=== PATIENT | male | born 1985 | race Caucasian/White ===

== ENCOUNTER 2016-10-23 17:35 | Emergency (ER) | payer OTHER ==
[~2016-10-23 17:35] MED LIST: Albuterol Sulfate 2.5 mg/0.5 ml Neb ONE
[2016-10-23] MEDS ORDERED: EPINEPHrine 1 MG/ML AMP ONE (17:51)
[2016-10-23] MEDS ORDERED: Ipratropium Bromide 2.5 ml Neb ONE (18:10)
[2016-10-23] MEDS ORDERED: methylPREDNISolone Sod Succ/PF 125 MG/2 ML VIAL ONE (18:10)
[2016-10-23] MEDS ORDERED: diphenhydrAMINE HCl 50 MG/ML 1 ML VIAL ONE (18:10)
[2016-10-23 18:11] LABS: #Basophils 0.1 thou/uL (0.0-0.2); #Eosinphils 0.2 thou/uL (0.0-0.7); #Neutrophils 6.2 thou/uL (1.40-6.50); %Basophils 1.2 % (0.0-1.0); %Eosinophils 1.7 % (0.0-10.0); %Lymphocytes 28.8 % (21.0-51.0); %Monocytes 9.5 % (0.0-10.0); %Neutrophils 58.8 % (42.0-75.0); Hemoglobin 17.4 g/dL (14.0-18.0); Mean Corpuscular HGB CONC 33.7 g/dL (32.0-36.0); Mean Corpuscular Hemoglobin 29.2 pg (27.0-31.0); Mean Corpuscular Volume 86.9 fl (80.0-94.0); Mean Platelet Volume 7.1 fL (7.4-10.4); Platelet Count 246 thou/uL (130-400); RBC Distribution Width 11.5 % (11.5-14.5); Red Blood Cell (RBC) Count 5.95 mill/uL (4.70-6.10); White Blood Cell (WBC) Count 10.5 thou/uL (4.8-10.8)
[2016-10-23] MEDS ORDERED: Sterile Water 10 ML ONE (18:21)
[2016-10-23 18:33] LABS: CKMB 4.6 ng/mL (0-6.6); Troponin I Less than 0.010 ng/mL (< 0.028)
[2016-10-23 18:34] LABS: ALT (SGPT) 57 U/L (0-55); AST (SGOT) 31 U/L (5-34); Albumin 4.1 g/dL (3.5-5.0); Alkaline Phosphatase 71 U/L (40-150); Anion Gap 18 mmol/L (10-20); BUN (Urea Nitrogen) 25 mg/dL (8.9-20.6); Bilirubin, Total 0.3 mg/dL (0.2-1.2); Calc. Creatinine Clearance 0 mL/min (70-130); Calcium 9.4 mg/dL (7.8-10.44); Carbon Dioxide 21 mmol/L (22-29); Chloride 107 mmol/L (98-107); Estimated GFR-MDRD 64; Globulin 2.6 g/dL (2.4-3.5); Glucose 128 mg/dL (70-105); Potassium 3.8 mmol/L (3.5-5.1); Protein, Total 6.7 g/dL (6.0-8.3); Sodium 142 mmol/L (136-145)
--- NOTE | 2016-10-23 19:37 | RAD ---
SINGLE VIEW OF THE CHEST 10/23/16 INDICATION: Dyspnea. IMPRESSION: There is added air space opacity within the left lower lobe which may reflect pneumonia. Recommend d edicated lateral projection for additional characterization. COMMENTS: There is suspected eventration of the right hemidiaphragm. Heart and pulmonary vasculatur e is within normal limits. No acute osseous abnormality is evident. POS: [facility]
--- NOTE | 2016-10-23 21:23 | PICIS ---
[facility] EMERGENCY RECORD TRIAGE (WedOct 23, 2016 17:49 SCHI) PATIENT: NAME: Kody Davis Jr, AGE: 30, GENDER: male, : Rekha 1985, TIME OF GREET: WedOct 23, 2016 17:35, PREFERRED LANGUAGE: Malay, ETHNICITY: Not or , ECODE BILLING MAP: [facility] ER, SSN: [id number], KG WEIGHT: 142.88, PHONE: , , , PERSON ID: [id number]. (WedOct 23, 2016 17:49 SCHI) Zip Code: [facility] [place]. (18:03) COMPLAINT: ALLERGIC REACTION. (WedOct 23, 2016 17:49 SCHI) ADMISSION: URGENCY: 3 Urgent, ADMISSION SOURCE: Home, TRANSPORT: Walk-in, BED: TRIAGE. (WedOct 23, 2016 17:49 SCHI) ASSESSMENT: Assessment: ALERT AND ORIENTED X 4, SKIN WARM AND DRY RESP EVEN AND UNLABORED,, Symptoms began 3PM. (18:03 SCHI) TRIAGE SCREENING: Patient denies suicidal ideation, Patient denies presence of domestic violence. (18:03 SCHI) PROVIDERS: TRIAGE NURSE: John Hendrickson RN. (WedOct 23, 2016 17:49 SCHI) VITAL SIGNS: Pulse 122, Resp 20, O2 Sat 94, on Room Air, Time 10/23/2016 17:49. (17:49 SCHI) BP 135/75, Pulse 113, Time 10/23/2016 17:55. (17:55 SCHI) KNOWN ALLERGIES nkda CURRENT MEDICATIONS (21:07 JDEA) None VITAL SIGNS VITAL SIGNS: Pulse: 122, Resp: 20, O2 sat: 94 on Room Air, Time: 10/23/2016 17:49. (17:49 SCHI) BP: 135/75, Pulse: 113, Time: 10/23/2016 17:55. (17:55 SCHI) BP: 135/75, Pulse: 108, Resp: 20, Temp: 99.1 (Tympanic), Pain: 0, O2 sat: 96 on Room Air, Time: 10/23/2016 18:20. (18:20 SCHI) BP: 126/78, Pulse: 108, O2 sat: 95 on Room Air, Time: 10/23/2016 18:41. (18:41 SCHI) NURSING ASSESSMENT: ALLERGIC REACTION CONSTITUTIONAL: Patient arrives ambulatory, Gait steady, History obtained from patient, Patient appears comfortable, Patient cooperative, Patient alert, Oriented to person, place and time, Skin warm, Skin dry, Skin normal in color, Mucous membranes pink, Mucous membranes moist, Patient is well-groomed. (18:39 SCHI) ALLERGIC REACTION: Allergic reaction to known allergen, insect bite, ant, Date and time of exposure: 1500 today, Allergic reaction symptoms include difficulty breathing, Allergic reaction symptoms include hives, Allergic reaction symptoms include rash, Allergic reaction symptoms include wheezing, Notes: took a Benadryl 1730. (18:39 SCHI) &a-1R&a+25V*p+0X*b4498R*c202B*c15G*c2P*p-0X&a-25V&a+1R Name: Kody Davis Jr : 1985 M30 MedRec: [id number] AcctNum: [id number] Prepared: Sat Oct 24, 2016 03:10 by Interface Page 1 of 10 pMD [facility] EMERGENCY RECORD RESPIRATORY: Lungs auscultated, Breath sounds with wheezing, Respiratory assessment findings include respiratory effort easy, Respirations regular, Conversing normally, Neck and chest exam findings include trachea midline, Chest expansion equal, Chest movement symmetrical. (18:39 SCHI) SKIN: Inspection findings include rash, red, hives, itchy, without drainage, to arms, chest,, flushed face and neck. (18:57 SCHI) NURSING PROCEDURE: COMPOSITE TECHNICIAN (18:00 SCHI) COMPOSITE TECHNICIAN: Patient placed on ekg monitor tech, Patient placed on non-invasive blood pressure monitor, Patient placed on continuous pulse oximetry, Adult/pediatric oxisensor applied. NURSING PROCEDURE: DISCHARGE NOTE (21:06 JDEA) DISCHARGE: Patient discharged to home, ambulating without assistance, family driving, accompanied by other family member, Summary of Care printed/ provided, Patient requested and was provided an electronic copy of Discharge Instructions, Transition record given to patient, Discharge instructions given to patient, Simple or moderate discharge teaching performed, Prescriptions given and instructions on side effects given, Above person(s) verbalized understanding of discharge instructions and follow-up care, Patient treated and evaluated by physician, Notes: pt states symptoms have much improved since initial arrival to the ED, states that he feels much better. BELONGINGS: Belongings and valuables with patient at time of discharge include:, Belongings remain with patient. NOTES: Patient tolerated procedure well. SAFETY: Family at bedside, Call light within reach, Hospital ID band on. NURSING PROCEDURE: IV (18:04 SCHI) PATIENT IDENITIFIER: Patient actively involved in identification process, Patient's identity verified by patient stating name, Patient's identity verified by patient stating date, Patient's identity verified by hospital ID bracelet. IV SITE 1: IV therapy indicated for hydration, IV therapy indicated for medication administration, IV established, to the left forearm, using a 20 gauge catheter, in one attempt, IV site prepped with chloraprep, Saline lock established, Flushed with normal saline (mls): 10, Labs drawn at time of placement, labeled in the presence of the patient and sent to lab. NURSING PROCEDURE: NURSE NOTES NURSES NOTES: Notes: all times are approximate due to care being provided, then documented. (18:00 SCHI) Patient is improving, Notes: no sob, most whelps are gone. (18:54 SCHI) &a-1R&a+25V*p+0X*n3613G*c202B*c15G*c2P*p-0X&a-25V&a+1R Name: Kody Davis Jr : 1985 M30 MedRec: [id number] AcctNum: [id number] Prepared: Fabrice Oct 24, 2016 03:10 by Interface Page 2 of 10 pMD [facility] EMERGENCY RECORD ORDER DETAILS Order Name: COMPOSITE TECHNICIAN ED, Status: Done, Time: 18:29 10/23/2016, User: ELLA, - Ordered for: MD Pina Darren, - Entered by: MD Pina Darren - Brian Oct 23, 2016 17:59, - Quantity: 1, Order Name: Cardiac Profile w/CKMB & Troponin - I, Status: Active, Time: 17:59 10/23/2016, User: GRUPO, - Ordered for: MD Pina Darren, - Entered by: MD Pina Darren - WedOct 23, 2016 17:59, - Quantity: 1, Order Name: CBC with Differential, Status: Active, Time: 17:59 10/23/2016, User: GRUPO, - Ordered for: MD Pina Darren, - Entered by: MD Pina Darren - WedOct 23, 2016 17:59, - Quantity: 1, Order Name: Comprehensive Metabolic Panel, Status: Active, Time: 17:59 10/23/2016, User: GRUPO, - Ordered for: MD Pina Darren, - Entered by: MD Pina Darren - WedOct 23, 2016 17:59, - Quantity: 1, Order Name: ERRT Pulse Oximeter ER, Status: Active, Time: 17:59 10/23/2016, User: GRUPO, - Ordered for: MD Pina Darren, - Entered by: MD Pina Darren - WedOct 23, 2016 17:59, - Quantity: 1, Order Name: SALINE LOCK, Status: Done, Time: 18:29 10/23/2016, User: ELLA, - Ordered for: MD Pina Darren, - Entered by: MD Pina Darren - WedOct 23, 2016 17:59, - Quantity: 1, Order Name: XR Chest 1 View Portable, Status: Active, Time: 17:59 10/23/2016, User: GRUPO, - Ordered for: MD Pina Darren, - Entered by: MD Pina Darren - WedOct 23, 2016 17:59, - Quantity: 1. MEDICATION ADMINISTRATION SUMMARY Drug Name: methylPREDNISolone sodium succ injection, Dose Ordered: 125 mg, Route: IV Push, Status: Given, Time: 18:28 10/23/2016, Drug Name: diphenhydrAMINE injection, Dose Ordered: 50 mg, Route: IV Push, Status: Given, Time: 18:19 10/23/2016, Drug Name: albuterol sulfate inhalation, Dose Ordered: 2.5 mg, Route: Nebulize, Status: Given, Time: 18:19 10/23/2016, Drug Name: EPINEPHrine injection, Dose Ordered: 0.3 mg, Route: Intramuscular, Status: Given, Time: 18:00 10/23/2016, Detailed record available in Medication Service section. &a-1R&a+25V*p+0X*h7028Y*c202B*c15G*c2P*p-0X&a-25V&a+1R Name: Kody Davis Jr : 1985 M30 MedRec: [id number] AcctNum: [id number] Prepared: [facility] Oct 24, 2016 03:10 by Interface Page 3 of 10 pMD [facility] EMERGENCY RECORD MEDICATION SERVICE albuterol sulfate inhalation: Order: albuterol sulfate inhalation (albuterol sulfate) - Dose: 2.5 mg : Nebulize Schedule: Now Ordered by: Ok Pina MD Entered by: Ok Pina MD WedOct 23, 2016 18:00 , Acknowledged by: Kai Forte RN WedOct 23, 2016 18:09 Documented as given by: John Hendrickson RN WedOct 23, 2016 18:19 Patient, Medication, Dose, Route and Time verified prior to administration. Site: Medication administered via Hand-held nebulizer, With oxygen, Correct patient, time, route, dose and medication confirmed prior to administration, Patient advised of actions and side-effects prior to administration, Allergies confirmed and medications reviewed prior to administration. diphenhydrAMINE injection: Order: diphenhydrAMINE injection (diphenhydramine HCl) - Dose: 50 mg : IV Push Schedule: Now Ordered by: Ok Pina MD Entered by: Ok Pina MD WedOct 23, 2016 17:59 , Acknowledged by: Kai Forte RN WedOct 23, 2016 18:09 Documented as given by: John Hendrickson RN WedOct 23, 2016 18:19 Patient, Medication, Dose, Route and Time verified prior to administration. IV SITE #1 IVP, initial medication, Catheter placement confirmed via flush prior to administration, IV site without signs or symptoms of infiltration during medication administration, No swelling during administration, No drainage during administration, IV flushed after administration, Correct patient, time, route, dose and medication confirmed prior to administration, Patient advised of actions and side-effects prior to administration, Allergies confirmed and medications reviewed prior to administration. EPINEPHrine injection: Order: EPINEPHrine injection (epinephrine) - Dose: 0.3 mg : Intramuscular Schedule: Now Ordered by: Ok Pina MD Entered by: Ok Pina MD WedOct 23, 2016 17:59 Documented as given by: John Hendrickson RN WedOct 23, 2016 18:00 Patient, Medication, Dose, Route and Time verified prior to administration. Verbal order read back and verified, IM medication, Medication administered to left deltoid, Correct patient, time, route, dose and medication confirmed prior to administration, Patient advised of actions and side-effects prior to administration, Allergies confirmed and medications reviewed prior to administration. methylPREDNISolone sodium succ injection: Order: methylPREDNISolone sodium succ injection (methylprednisolone sod succ) - Dose: 125 mg : IV Push Schedule: Now Ordered by: Ok Pina MD &a-1R&a+25V*p+0X*s4395T*c202B*c15G*c2P*p-0X&a-25V&a+1R Name: Ryan Fischer Kody Christina : 1985 M30 MedRec: [id number] AcctNum: [id number] Prepared: Sat Oct 24, 2016 03:10 by Interface Page 4 of 10 pMD [facility] EMERGENCY RECORD Entered by: Ok Pina MD WedOct 23, 2016 17:59 , Acknowledged by: Kai Forte RN WedOct 23, 2016 18:08 Documented as given by: John Hendrickson RN WedOct 23, 2016 18:28 Patient, Medication, Dose, Route and Time verified prior to administration. IV SITE #1 IVP, subsequent different medication, Slowly, Catheter placement confirmed via flush prior to administration, IV site without signs or symptoms of infiltration during medication administration, No swelling during administration, No drainage during administration, IV flushed after administration, Correct patient, time, route, dose and medication confirmed prior to administration, Patient advised of actions and side-effects prior to administration, Allergies confirmed and medications reviewed prior to administration. HPI ALLERGY (18:05 DHAM) CHIEF COMPLAINT: Patient presents for evaluation of itching, Patient presents for evaluation of swelling, Patient presents for evaluation of shortness of breath, Patient presents for evaluation of rash. HISTORIAN: History provided by patient, was at work 3 hours ago and felt a sting to the left calf and noted a fire ant there. no reaction for about an hour then developed a rash and sob 30 min ago. LOCATION: Symptoms are generalized. QUALITY: Dermal and respiratory. SEVERITY: Current severity of pain rated as 0/10. TIME COURSE: Gradual onset of symptoms, 3, hours prior to arrival, Symptoms are worsening, shortness of berath for 30 minutes. ASSOCIATED WITH: No associated abdominal pain, No associated anxiety, Associated with cough, No associated chest pain, No associated fever, No associated neurological symptoms, Associated with rash, for 3 hours, constant, Associated with swelling, to the face, to the hands, generalized, No associated vomiting, Associated with wheezing. RISK FACTORS: No known previous allergy reactions, No known Beta-david use. RELIEVED BY: Patient's condition relieved by took one benadryl 30 min ago. ROS (18:08 DHAM) CONSTITUTIONAL: Historian denies fever. EYES: Historian denies eye pain, denies eye redness, reports itching, reports tearing. ENT: Historian denies rhinorrhea, denies sore throat, denies stridor, denies voice changes. CARDIOVASCULAR: Historian denies chest pain, no radiation, Historian denies diaphoresis, denies orthopnea, denies syncope, reports palpitations. RESPIRATORY: Historian reports cough, reports shortness of breath, reports wheezing. GI: Historian denies abdominal pain, denies diarrhea, denies &a-1R&a+25V*p+0X*c3605R*c202B*c15G*c2P*p-0X&a-25V&a+1R Name: Kody Davis Jr : 1985 M30 MedRec: [id number] AcctNum: [id number] Prepared: Fabrice Oct 24, 2016 03:10 by Interface Page 5 of 10 pMD [facility] EMERGENCY RECORD nausea, denies vomiting. GENITOURINARY MALE: Historian denies dysuria, denies urinary frequency, denies urinary urgency. MUSCULOSKELETAL: Historian denies arthralgias, denies injury. SKIN: Historian reports pruritis, reports rash. NEUROLOGIC: Historian denies confusion, denies dizziness, denies mental status changes, denies paralysis, denies paresthesias. ENDOCRINE: Historian denies cold intolerance, denies polydipsia, denies polyuria. HEMO/LYMPHATIC: Historian denies abnormal blood clotting, denies easy bruising. ALLERGIC/IMMUNOLOGIC: Historian denies eczema, denies frequent infections, denies hives. h/o asthma as a child. PSYCHIATRIC: Historian denies anxiety. [facility] MEDICAL HISTORY: No past medical history. SOCIAL HISTORY: Patient denies alcohol use, Patient denies drug use, Patient has no smoking history. PHYSICAL EXAM (18:10 [facility]) CONSTITUTIONAL: Vital Signs Reviewed, Patient afebrile, Pulse, tachycardic, Blood pressure normal, Respiratory rate normal, Normal pulse oximetry, Patient appears, uncomfortable, Patient appears pain free, Patient alert and oriented to person, place and time, Nursing notes reviewed, face appears red and diffusely swollen. appears in some mild distress. HEAD: Head exam included findings of head atraumatic, normocephalic. EYES: Eye exam included findings of eyelids normal to inspection, Pupils equally round and reactive to light, Extraocular muscles intact, Conjunctiva, injected bilaterally, not edematous, Sclera normal, Eye exam included findings of anterior chamber clear. ENT: ENT exam normal, Ear exam normal, external ear normal, tympanic membranes normal, Nose exam normal, no bleeding from nares, Pharynx exam normal, Uvula exam normal, Tonsil exam normal, not enlarged, no exudates, Mouth exam normal, mucous membranes moist. NECK: Neck exam included findings of normal range of motion, Trachea midline, no carotid bruits, no jugular venous distention, no cervical adenopathy. RESPIRATORY CHEST: Respiratory exam included findings of, mild respiratory distress, Wheezing present, diffusely, No rales, Breath sounds diminished, mild diffuse wheezing with forced expiration. CARDIOVASCULAR: Cardiovascular exam included findings of heart rate regular rate and rhythm, Heart sounds normal, Point of maximal impulse normal, Pedal pulses normal. &a-1R&a+25V*p+0X*e4558A*c202B*c15G*c2P*p-0X&a-25V&a+1R Name: Kody Davis Jr : 1985 M30 MedRec: [id number] AcctNum: [id number] Prepared: Sat Oct 24, 2016 03:10 by Interface Page 6 of 10 pMD [facility] EMERGENCY RECORD ABDOMEN MALE: Abdominal exam included findings of abdomen nontender, Bowel sounds normal, Liver normal, Spleen normal, no distension, no peritoneal signs. BACK: Back exam normal. UPPER EXTREMITY: Upper extremity exam normal, Motor strength normal, Sensation intact. LOWER EXTREMITY: Lower extremity exam normal. NEURO: Neuro exam findings include patient oriented to person, place and time, Speech normal, Memory normal, Cranial nerves intact, Deep tendon reflexes normal, no focal motor deficits, no focal sensory deficits. SKIN: Skin exam included findings of skin warm, dry, urticarial rash to face arms chest and back noted. LYMPHATIC: Lymphatic exam normal, Lymphatic exam included findings of cervical adenopathy. PSYCHIATRIC: Psychiatric exam included findings of patient oriented to person place and time, Normal affect. EVENTS TRANSFER: Triage to Emergency Triage. (WedOct 23, 2016 17:49 SCHI) Emergency Triage to Main ED -01. (17:55 SCHI) Removed from Emergency Main ED -01. (21:08 JDEA) O2SAT INTERPRETATION (18:12 DHAM) O2SAT: Single pulse oximetry, Oxygen saturation 94%, on room air, Oxygen saturation interpretation: Low normal, Intervention required: patient observed, Intervention required: aerosol treatment. DOCTOR NOTES (20:47 DHAM) TEXT: Pt has been monitored for over 3 hours. He had quick resolution of all of his symptoms. His attentive accompanies him here. The live less than 3 miles from the hospital and can get here quickly. He has never had an allergic reaction before. I have discussed anaphylaxis with the pt and his and stressed the importance of epipen and allergy referral silverio. see dci. PROBLEM LIST No recorded problems DIAGNOSIS (20:50 DHAM) FINAL: PRIMARY: Anaphylaxis. DISPOSITION PATIENT: Disposition Type: Discharge, Disposition: *Discharge Home. (20:50 DHAM) Patient left the department. (21:08 JDEA) INSTRUCTION (20:53 DHAM) DISCHARGE: ANAPHYLAXIS, GENERAL. &a-1R&a+25V*p+0X*z6040D*c202B*c15G*c2P*p-0X&a-25V&a+1R Name: Kody Davis Jr : 1985 M30 MedRec: [id number] AcctNum: [id number] Prepared: Fabrice Oct 24, 2016 03:10 by Interface Page 7 of 10 pMD [facility] EMERGENCY RECORD SPECIAL: Epipen to keep with you at all times and use at first sign of wheezing, rash, shortness of breath and come in to the ER or call EMS. See your pcp for allergy referral silverio. Return here for any recurrent rash, shortness of breath, tongue or facial swelling or any other concerns. PRESCRIPTION (20:54 DHAM) EpiPen 2-Riki: AUTO-INJECTOR (EA) : 0.3 mg/0.3 mL (1:1,000) : INJECTION : Quantity: 0.3 Unit: mg Route: INJECTION Schedule: As Needed Dispense: 2 Unit: ea May substitute. Refills: No Refills . NOTES: keep with you at all times and use immediately for any sign of anaphylaxis as we discussed No Refills. IMAGING (21:10 JDEA) *DISCHARGE INSTRUCTIONS RECEIPT: Image captured from scanner. *SUPPLY CHARGE SHEET: Image captured from scanner. ADMIN (WedOct 24, 2016 03:02 DHAM) DIGITAL SIGNATURE: MD Pina Darren. RESULTS (20:45 DHAM) RADIOLOGY: XR Chest 1 View Portable Observe DT: WedOct 23, 2016 18:01, CXRP SINGLE VIEW OF THE CHEST 10/23/16 INDICATION: Dyspnea. IMPRESSION: There is added air space opacity within the left lower lobe which may reflect pneumonia. Recommend d edicated lateral projection for additional characterization. COMMENTS: There is suspected eventration of the right hemidiaphragm. Heart and pulmonary vasculatur e is within normal limits. No acute osseous abnormality is evident. POS: [facility] . LABORATORY: Cardiac Profile w/CKMB & TropI Collection DT: WedOct 23, 2016 18:10, CKMB 4.6 ng/mL, Range (0-6.6), Troponin I Less than 0.010 ng/mL, Range (< 0.028), Reference Range &a-1R&a+25V*p+0X*k2360J*c202B*c15G*c2P*p-0X&a-25V&a+1R Name: Kody Davis Jr : 1985 M30 MedRec: [id number] AcctNum: [id number] Prepared: Sat Oct 24, 2016 03:10 by Interface Page 8 of 10 pMD [facility] EMERGENCY RECORD , 0.00 - 0.028 ng/mL Negative 0.029 - 0.29 ng/mL , Indeterminate Greater or Equal to 0.3 ng/mL Strongly suggests IN , . Comprehensive Metabolic Panel Collection DT: WedOct 23, 2016 18:10, Sodium 142 mmol/L, Range (136-145), Potassium 3.8 mmol/L, Range (3.5-5.1), Chloride 107 mmol/L, Range (98-107), *Carbon Dioxide 21 - L mmol/L, Range (22-29), Anion Gap 18 mmol/L, Range (10-20), *BUN (Urea Nitrogen) 25 - H mg/dL, Range (8.9-20.6), Creatinine 1.30 mg/dL, Range (0.7-1.3), Estimated GFR-MDRD 64 , Reference Range for Estimated GFR: Greater than 90, mL/min/1.73 m2 NOTE: The MDRD equation has not been validated for use, with the elderly (over 70 years of age), women, patients with, serious comorbid condition or persons with extremes of body size, muscle, mass, or nutritional status. , *Glucose 128 - H mg/dL, Range (70-105), Calcium 9.4 mg/dL, Range (7.8-10.44), Bilirubin, Total 0.3 mg/dL, Range (0.2-1.2), Protein, Total 6.7 g/dL, Range (6.0-8.3), NOTE: Plasma values are generally 0.3 to 0.5 g/dL higher than serum values, due to the presence of fibrinogen. , Albumin 4.1 g/dL, Range (3.5-5.0), Globulin 2.6 g/dL, Range (2.4-3.5), Alb/Glob Ratio 1.6 g/dL, Range (1.2-2.2), Alkaline Phosphatase 71 U/L, Range (40-150), AST (SGOT) 31 U/L, Range (5-34), *ALT (SGPT) 57 - H U/L, Range (0-55). CBC with Differential Collection DT: WedOct 23, 2016 18:10, White Blood Cell (WBC) Count 10.5 thou/uL, Range (4.8-10.8), Red Blood Cell (RBC) Count 5.95 mill/uL, Range (4.70-6.10), Hemoglobin 17.4 g/dL, Range (14.0-18.0), Hematocrit 51.7 %, Range (42.0-52.0), Mean Corpuscular Volume 86.9 fl, Range (80.0-94.0), Mean Corpuscular Hemoglobin 29.2 pg, Range (27.0-31.0), Mean Corpuscular HGB CONC 33.7 g/dL, Range (32.0-36.0), RBC Distribution Width 11.5 %, Range (11.5-14.5), Platelet Count 246 thou/uL, Range (130-400), *Mean Platelet Volume 7.1 - L fL, Range (7.4-10.4), %Neutrophils 58.8 %, Range (42.0-75.0), %Lymphocytes 28.8 %, Range (21.0-51.0), %Monocytes 9.5 %, Range (0.0-10.0), %Eosinophils 1.7 %, Range (0.0-10.0), *%Basophils 1.2 - H %, Range (0.0-1.0), #Neutrophils 6.2 thou/uL, Range (1.40-6.50), #Lymphocytes 3.0 thou/uL, Range (1.20-3.40), &a-1R&a+25V*p+0X*o5715S*c202B*c15G*c2P*p-0X&a-25V&a+1R Name: Kody Davis Jr : 1985 M30 MedRec: [id number] AcctNum: [id number] Prepared: Sat Oct 24, 2016 03:10 by Interface Page 9 of 10 pMD [facility] EMERGENCY RECORD *#Monocytes 1.0 - H thou/uL, Range (0.11-0.59), #Eosinphils 0.2 thou/uL, Range (0.0-0.7), #Basophils 0.1 thou/uL, Range (0.0-0.2). Quevedo: GRUPO=MD Silvana, Ok SOTOMAYOR=MANA Benoit, Yolis JARAMILLO=MANA Hendrickson, Slinda &a-1R&a+25V*p+0X*h0387I*c202B*c15G*c2P*p-0X&a-25V&a+1R Name: Kody Davis Jr : 1985 M30 MedRec: [id number] AcctNum: [id number] Prepared: Fabrice Oct 24, 2016 03:10 by Interface Page 10 of 10 pMD MTDD
== END 2016-10-23 21:06 | disposition home or self-care (01) ==
LOC: MADERS 17:35
DX: T78.2XXA Anaphylactic shock, unspecified, initial encounter (principal)
CPT/HCPCS: 36415; 71010; 80053; 82553; 84484; 85025; 94760; 96372; 96374; 96375; A4216; J0171; J1200; J2930; J7611; J7644

== ENCOUNTER 2016-11-30 08:17 | Outpatient (CLI) | payer OTHER ==
[2016-11-30 08:53] LABS: Hemoglobin A1c 5.3 % (4.0-6.0)
[2016-11-30 09:03] LABS: #Basophils 0.1 thou/uL (0.0-0.2); #Eosinphils 0.1 thou/uL (0.0-0.7); #Lymphocytes 1.9 thou/uL (1.20-3.40); #Monocytes 0.7 thou/uL (0.11-0.59); #Neutrophils 4.6 thou/uL (1.40-6.50); %Basophils 1.7 % (0.0-1.0); %Eosinophils 1.2 % (0.0-10.0); %Lymphocytes 25.6 % (21.0-51.0); %Monocytes 9.8 % (0.0-10.0); %Neutrophils 61.8 % (42.0-75.0); Hemoglobin 16.9 g/dL (14.0-18.0); Mean Corpuscular HGB CONC 33.1 g/dL (32.0-36.0); Mean Corpuscular Hemoglobin 29.5 pg (27.0-31.0); Mean Corpuscular Volume 89.3 fl (80.0-94.0); Mean Platelet Volume 7.3 fL (7.4-10.4); Platelet Count 206 thou/uL (130-400); RBC Distribution Width 12.7 % (11.5-14.5); Red Blood Cell (RBC) Count 5.73 mill/uL (4.70-6.10); White Blood Cell (WBC) Count 7.5 thou/uL (4.8-10.8)
[2016-11-30 09:19] LABS: ALT (SGPT) 53 U/L (0-55); AST (SGOT) 22 U/L (5-34); Alkaline Phosphatase 71 U/L (40-150); Anion Gap 15 mmol/L (10-20); BUN (Urea Nitrogen) 17 mg/dL (8.9-20.6); Bilirubin, Total 0.4 mg/dL (0.2-1.2); Calc. Creatinine Clearance 0 mL/min (70-130); Calcium 8.9 mg/dL (7.8-10.44); Carbon Dioxide 24 mmol/L (22-29); Cardiac Risk 3.7 (Less than 4.5); Chloride 105 mmol/L (98-107); Cholesterol 183 mg/dL (< 200 Desired); Estimated GFR-MDRD 87; Globulin 2.7 g/dL (2.4-3.5); Glucose 94 mg/dL (70-105); HDL Cholesterol 50 mg/dL (>60 Neg Risk); LDL Cholesterol, Calculated 117 mg/dL; Potassium 4.3 mmol/L (3.5-5.1); Protein, Total 6.7 g/dL (6.0-8.3); Sodium 140 mmol/L (136-145); Triglycerides 81 mg/dL (Less than 150)
[2016-11-30 13:00] LABS: Thyroid Stimulating Hormone 1.7828 uIU/mL (0.35-4.94)
[2016-11-30 14:45] LABS: Vitamin D, 25 Hydroxy 17.3 ng/mL (> 30.0)
== END 2016-11-30 08:18 ==
LOC: MADLABBHPM 08:17
PROVIDERS: ATTEND Family Medicine
DX: Z00.00 Encounter for general adult medical examination without abnormal findings (principal)
CPT/HCPCS: 36415; 80053; 80061; 82306; 83036; 84443; 85025

== ENCOUNTER 2019-10-31 15:16 | Outpatient (CLI) | payer OTHER ==
--- NOTE | 2019-10-31 15:47 | RAD ---
EXAM: Two views chest PROVIDED CLINICAL HISTORY: Chronic cough COMPARISON: 10/23/2016 FINDINGS: Cardiac silhouette and pulmonary vasculature are within normal limits. The lungs are clear. Mild deg enerative change seen in the thoracic spine. There has been no significant interval change compared to prior exam. IMPRESSION: No acute cardiopulmonary process.
== END 2019-10-31 15:17 | disposition home or self-care (01) ==
LOC: MADRAD 15:16
PROVIDERS: ATTEND Family Medicine
DX: R05 Cough (principal)
CPT/HCPCS: 71046

== ENCOUNTER 2020-04-19 09:15 | Outpatient (CLI) | payer OTHER ==
--- NOTE | 2020-04-19 10:09 | ULT ---
Scrotal sonogram with duplex evaluation HISTORY: Bilateral testicular pain. FINDINGS: Right testicle is 3.2 cm length and left is 4.0 cm. Each has a normal appearance with good color and spectral Doppler flow. Tiny cyst associated with each epididymis. Minimal fluid on the left. IMPRESSION : No evidence of testicular mass or torsion. No significant abnormalities.
== END 2020-04-19 09:16 | disposition home or self-care (01) ==
LOC: MADULT 09:15
PROVIDERS: ATTEND Family Medicine
DX: N50.811 Right testicular pain (principal); N50.812 Left testicular pain
CPT/HCPCS: 76870; 93976

== ENCOUNTER 2021-05-25 21:04 | Emergency (ER) | payer BC, OTHER ==
[~2021-05-25 21:04] MED LIST changes: -Albuterol Sulfate 2.5 mg/0.5 ml Neb ONE; +Sodium Chloride 0.9% 500 ML BAG ONE
[2021-05-25] MEDS ORDERED: Sodium Chloride 0.9% 500 ML ONE (21:29)
[2021-05-25] MEDS ORDERED: methylPREDNISolone Sod Succ/PF 125 MG/2 ML VIAL ONE (21:29)
[2021-05-25] MEDS ORDERED: Ketorolac Tromethamine 30 MG/ML VIAL ONE (21:29)
[2021-05-25 21:43] LABS: #Lymphocytes 0.9 thou/uL (1.20-3.40); #Monocytes 0.2 thou/uL (0.11-0.59); #Neutrophils 3.3 thou/uL (1.40-6.50); %Basophils 0.5 % (0.0-1.0); %Eosinophils 0.1 % (0.0-10.0); %Lymphocytes 20.8 % (21.0-51.0); %Monocytes 5.4 % (0.0-10.0); %Neutrophils 73.3 % (42.0-75.0); Hemoglobin 17.6 g/dL (14.0-18.0); Mean Corpuscular HGB CONC 33.2 g/dL (32.0-36.0); Mean Corpuscular Hemoglobin 29.5 pg (27.0-31.0); Mean Corpuscular Volume 88.9 fL (78.0-98.0); Mean Platelet Volume 8.1 fL (7.4-10.4); Platelet Count 107 thou/uL (130-400); Platelet Morphology Comment Appears Decreased; RBC Distribution Width 11.1 % (11.5-14.5); RBC Morphology Normal; Red Blood Cell (RBC) Count 5.95 mill/uL (4.70-6.10); White Blood Cell (WBC) Count 4.5 thou/uL (4.8-10.8)
[2021-05-25 21:52] LABS: ALT (SGPT) 49 U/L (8-55); AST (SGOT) 46 U/L (5-34); Albumin 3.6 g/dL (3.5-5.0); Alkaline Phosphatase 53 U/L (40-110); Anion Gap 14 mmol/L (10-20); BUN (Urea Nitrogen) 15 mg/dL (8.9-20.6); Bilirubin, Total 0.6 mg/dL (0.2-1.2); Calc. Creatinine Clearance 0 mL/min (70-130); Calcium 9.5 mg/dL (7.8-10.44); Carbon Dioxide 24 mmol/L (22-29); Chloride 103 mmol/L (98-107); Globulin 2.8 g/dL (2.4-3.5); Glucose 108 mg/dL (70-105); Magnesium 1.7 mg/dL (1.6-2.6); Potassium 3.9 mmol/L (3.5-5.1); Protein, Total 6.4 g/dL (6.0-8.3); Sodium 137 mmol/L (136-145)
[2021-05-25] MEDS ORDERED: Azithromycin 250 MG TAB ONE (22:23)
[2021-05-25] MEDS ORDERED: Acetaminophen 500 MG TAB ONE (22:23)
[2021-05-25 22:38] LABS: Bicarbonate (HCO3v) 24.7 mmol/L (22.0-28.0); CO2 Tension (PvCO2) 36.4 mmHg (42.0-51.0); Calcium, Ionized 1.06 mmol/L (1.15-1.33); Chloride 103 mmol/L (98-107); Hemoglobin - Calc 16.9 g/dL (14.0-18.0); Sodium 139 mmol/L (138-145); T. Carbon Dioxide 25.9 mmol/L (22.0-28.0); vO2 Saturation-calc 99.8 % (60.0-85.0)
== END 2021-05-26 00:18 | disposition home or self-care (01) ==
LOC: MADERS 21:04
DX: U07.1 COVID-19 (principal); J12.82 Pneumonia due to coronavirus disease 2019; F17.210 Nicotine dependence, cigarettes, uncomplicated; Z79.82 Long term (current) use of aspirin
CPT/HCPCS: 71045; 80053; 82330; 82803; 83605; 83735; 83880; 84484; 85025; 96374; 96375; J1885; J2930; J7030; J7620

== ENCOUNTER 2021-05-30 18:07 | Emergency (ER) | payer BC | END 2021-05-30 20:16 | disposition home or self-care (01) | LOC: MADERS 18:07 | DX: U07.1 COVID-19 (principal); F17.200 Nicotine dependence, unspecified, uncomplicated | CPT/HCPCS: 99284 ==